=== PATIENT | male | born 2000 | race African-American/Black ===

== ENCOUNTER 2020-09-17 11:05 | Emergency (ER) | payer OTHER, SELFPAY ==
[2020-09-17 11:44] LABS: Squamous Epithelial None Seen HPF (0-3); WBC/HPF Greater than 50 HPF (0-3)
[2020-09-17 11:46] LABS: Bacteria/HPF 1+ HPF (None Seen); Clarity Clear (Clear); Leukocyte Unable to Interpret Leu/uL (Negative); Nitrite Unable to Interpret (Negative); Specific Gravity, Urine 1.029 (1.002-1.036); pH, Urine 6.3 (5.0-9.0)
[2020-09-17 11:47] LABS: Bilirubin Unable to Interpret (Negative); Blood, Urine Unable to Interpret (Negative); Glucose, Urine (Dipstick) Unable to Interpret mg/dL (Negative); Ketone, Urine Unable to Interpret mg/dL (Negative); Protein, Urine (Dipstick) 30 mg/dL (Neg-Trace); Urobilinogen UNABLE TO INTERPRET mg/dL (Less than 2)
[2020-09-17] MEDS ORDERED: cefTRIAXone\\ROCEPHIN 500 MG VIAL ONE (12:22)
[2020-09-18 23:06] LABS: Chlam.trachomatis by PCR,Urine Not Detected (NotDetected)
== END 2020-09-17 12:56 | disposition home or self-care (01) ==
LOC: ERS 11:05
DX: N34.2 Other urethritis (principal)
CPT/HCPCS: 81003; 81015; 87086; 87491; 87591; 96372; 99283; J0696